=== PATIENT | male | born 1955 | race African-American/Black ===

== ENCOUNTER 2019-05-14 07:20 | Day surgery (SDC) | payer OTHER ==
[2019-05-14] MEDS ORDERED: SODIUM CHLORIDE 0.9% 1000 ML 1,000 ML ONE (07:45)
[2019-05-14] MEDS ORDERED: LIDOCAINE MPF (2%) 20 MG/1 ML VIAL 5 ML ONE (08:00)
[2019-05-14] MEDS ORDERED: SODIUM CHLORIDE 0.9% 1000 ML 1,000 ML IV SCH (08:45)
--- NOTE | 2019-05-14 08:52 | Anesthesia Consultation ---
Anesthesia Consult and Med Hx Date of service: 05/14/19 - Airway Anesthetic Teeth Evaluation: Good ROM Head & Neck: Adequate Mental/Hyoid Distance: Adequate Mallampati Class: Class III Intubation Access Assessment: Possibly Difficult - Pre-Operative Health Status ASA Pre-Surgery Classification: ASA3 Proposed Anesthetic Plan: MAC - Pulmonary Hx Smoking: No Hx Asthma: No Hx Respiratory Symptoms: No SOB: No COPD: No Home Oxygen Therapy: No Hx Pneumonia: No Hx Sleep Apnea: Yes - Cardiovascular System Hx Hypertension: Yes Hx Coronary Artery Disease: No Hx Heart Attack/AMI: No Hx Angina: No Hx Percutaneous Transluminal Coronary Angioplasty (PTCA): No Hx Cardia Arrhythmia: No Hx Pacemaker: No Hx Internal Defibrillator: No Hx Valvular Heart Disease: No Hx Heart Murmur: No Hx Peripheral Vascular Disease: No - Central Nervous System Hx Neuromuscular Disorder: No Hx Seizures: No CVA: No Hx Back Pain: No Hx Psychiatric Problems: No - Gastrointestinal Hx Ulcer: No Hx Gastroesophageal Reflux Disease: No - Endocrine Hx Renal Disease: No Hx End Stage Renal Disease: No Hx Cirrhosis: No Hx Liver Disease: No Hx Insulin Dependent Diabetes: No Hx Non-Insulin Dependent Diabetes: Yes (on metformin) Hx Thyroid Disease: No Hx Hypothyroidism: No Hx Hyperthyroidism: No - Hematic Hx Anemia: No Hx Sickle Cell Disease: No - Other Systems Hx Alcohol Use: No Hx Substance Use: No Hx Cancer: No Hx Obesity: Yes
--- NOTE | 2019-05-14 08:53 | Anesthesia Day of Surgery ---
Anesthesia Day of Surgery - Day of Surgery Patient Examined: Yes Patient H&P Reviewed: Yes Patient is NPO: Yes
[2019-05-14] MEDS ORDERED: PROPOFOL 200 MG/20 ML VIAL IV ONE ×2 (09:53→09:54)
--- NOTE | 2019-05-14 10:21 | Short Stay Summary ---
Short Stay Documentation Date of service: 05/14/19 Narrative H&P: The patient presents for screening colonoscopy; denies gi complaints at this time. - History Past Medical History: other (no changes from office visit) Past Surgical History: Other (no changes from office visit) Social history: no significant social history - Allergies and Medications Current Medications: Allergies Sulfa (Sulfonamide Antibiotics) Allergy (Verified 05/14/19 09:01) Itching Home Medications Medication Instructions Recorded Confirmed Last Taken Type Losartan [Cozaar] 25 mg PO QDAY 05/14/19 05/14/19 05/13/19 History Meloxicam [Mobic] 1 tab PO PRN PRN 05/14/19 05/14/19 05/10/19 History Pravastatin [Pravachol] 40 mg PO QHS 05/14/19 05/14/19 05/13/19 17:00 History metFORMIN [Glucophage] 500 mg PO BID 05/14/19 05/14/19 05/13/19 19:00 History Active Medications Sodium Chloride (Nacl 0.9% 1000 Ml) 1,000 mls @ 50 mls/hr IV DIRECT JONG Last Admin: 05/14/19 09:02 Dose: 50 mls/hr Documented by: - Physical exam General appearance: no acute distress Lungs: Clear to auscultation Heart: Regular rate, Normal S1, Normal S2 Gastrointestinal: normal - Brief post op/procedure progress note Date of procedure: 05/14/19 Pre-op diagnosis: Screening for colorectal cancer Post-op diagnosis: other (colon polyps x 4 removed) Procedure: colonoscopy with snare polypectomy Anesthesia: MAC Findings: colon polyps x 4 (all sessile, ranging 4-7 mm) removed with cold snare Surgeon: LIS MOORE Estimated blood loss: minimal Pathology: list (Jar A - ascending colon polyp; Jar B - transverse colon polyps) Specimen disposition: to lab Condition: stable - Disposition Condition at discharge: Good Disposition: DC-01 TO HOME OR SELFCARE Short Stay Discharge Plan Follow up with: PRIMARY CARE, [Primary Care Provider] - 7 Days
--- NOTE | 2019-05-14 10:24 | Operative Report ---
Operative Report Operative Report: Colonoscopy Procedure Note with snare polypectomy Date of procedure: 05/14/2019 Endoscopist: Vabihav Claros Pre-op diagnosis/indication: Screening for colorectal cancer Post-op diagnosis: Colon polyps, internal hemorrhoids MEDICATIONS: MAC COMPLICATIONS: No immediate complications ESTIMATED BLOOD LOSS: Minimal DESCRIPTION OF PROCEDURE: After consent was obtained, the patient was placed in the left lateral decubitis position. The olympus colonoscope was inserted into the rectum under direct vision, and advanced to the cecum without difficulty. The quality of prep was fair. The patient tolerated the procedure well. The patient's vital signs were monitored continuously throughout the procedure. FINDINGS: There was an ~7 mm sessile polyp in the ascending colon. The polyp was removed with cold snare polypectomy and retrieved. There were three sessile polyps in the transverse colon, ranging 3-5 mm in size. The polyps were removed with cold snare polypectomy and retrieved. Internal hemorrhoids were visualized on retroflexion view. IMPRESSION: 1. Colon polyps x 4 removed with cold snare polypectomy 2. Internal hemorrhoids RECOMMENDATIONS: -follow up pathology results -repeat colonoscopy for surveillance in 3 years
--- NOTE | 2019-05-14 10:54 | Post Anesthesia Evaluation ---
- Post Anesthesia Evaluation Patient Participated: Yes Airway Patent: Yes Stable Respiratory Function: Yes Nausea/Vomiting: No Temp > 96.8F: Yes Pain Manageable: Yes Adequeate Hydration: Yes Anesthesia Complications: No
[2019-05-14 13:57] VITALS: BP 160/88
== END 2019-05-14 07:21 | disposition home or self-care (01) ==
LOC: GIO 07:20
PROVIDERS: ATTEND Internal Medicine Gastroenterology
DX: Z12.11 Encounter for screening for malignant neoplasm of colon (principal); D12.3 Benign neoplasm of transverse colon; D12.2 Benign neoplasm of ascending colon; K64.8 Other hemorrhoids; E78.00 Pure hypercholesterolemia, unspecified; I10 Essential (primary) hypertension; G47.30 Sleep apnea, unspecified; M19.90 Unspecified osteoarthritis, unspecified site; E11.9 Type 2 diabetes mellitus without complications; Z88.2 Allergy status to sulfonamides; Z79.84 Long term (current) use of oral hypoglycemic drugs; Z79.899 Other long term (current) drug therapy
CPT/HCPCS: 45385; 82962; 88305; J2704; J7030